=== PATIENT | female | born 1965 | race Caucasian/White ===

== ENCOUNTER 2017-04-12 20:54 | Inpatient (IN) | payer MEDICAID ==
[~2017-04-12] VITALS: Ht 167.6 cm; Wt 92.5 kg
[~2017-04-12 20:54] MED LIST: CLIN150C15; IBUP-1955
--- NOTE | 2017-04-12 21:42 | NUR ---
Patient is in bed. Bed is in lowest position, wheels locked, side rails up x2. Visitor at bedside. Patient has current complaint of nausea but no active vomiting. VSS. Placed on logistics vice president with NSR noted. Will continue to monitor patient.
[2017-04-12] MEDS ORDERED: IV NORMAL SALINE 500 ML BAG IV ONE (21:45)
[2017-04-12] MEDS ORDERED: MORPHINE SULFATE 2 MG/1 ML DISP.SYRIN IV ONE (22:00)
[2017-04-12 22:04] LABS: BASOPHILS % (AUTO) 0.5 % (0.0-2.0); EOSINOPHILS # (AUTO) 0.1 K/uL (0.0-0.7); EOSINOPHILS % (AUTO) 1.3 % (0.0-7.0); HEMATOCRIT 48.9 % (31.2-41.9); HEMOGLOBIN 16.1 g/dL (10.9-14.3); LYMPHOCYTES % (AUTO) 13.5 % (20.5-51.5); MEAN CORPUSCULAR HEMOGLOBIN 27.7 uug (24.7-32.8); MEAN CORPUSCULAR HGB CONC 33 g/dL (32.3-35.6); MEAN CORPUSCULAR VOLUME 84.3 fL (75.5-95.3); MONOCYTES # (AUTO) 0.7 K/uL (2.0-10.0); MONOCYTES % (AUTO) 9.8 % (0.0-11.0); NEUTROPHILS # (AUTO) 5.6 K/uL (1.8-8.9); NEUTROPHILS % (AUTO) 74.9 % (38.5-71.5); PLATELET COUNT (AUTO) 137 K/uL (179-408); WHITE BLOOD COUNT (AUTO) 7.5 K/uL (3.8-11.8)
[2017-04-12 22:11] LABS: CREATININE 0.9 mg/dL (0.6-1.3); POTASSIUM 3.8 mmol/L (3.5-5.1)
[2017-04-12] MEDS ORDERED: ONDANSETRON 4 MG/2 ML VIAL IV ONE (22:15)
[2017-04-12 22:17] LABS: BILIRUBIN,DIRECT 1.2 mg/dL (0.0-0.2); BILIRUBIN,TOTAL 2.2 mg/dL (0.2-1.0); TOTAL PROTEIN, SERUM 7.9 g/dL (6.4-8.2)
[2017-04-12] MEDS ORDERED: MORPHINE SULFATE 4 MG/1 ML DISP.SYRIN ONE (22:18)
[2017-04-12] MEDS ORDERED: ONDANSETRON 4 MG/2 ML VIAL ONE (22:18)
[2017-04-12] MEDS ORDERED: FUROSEMIDE 20 MG/2 ML VIAL IV ONE (22:45)
--- NOTE | 2017-04-12 22:59 | NUR ---
Report given to Colleen BOTELLO
[2017-04-12] MEDS ORDERED: FUROSEMIDE 40 MG/4 ML VIAL ONE (23:01)
--- NOTE | 2017-04-12 23:20 | NUR ---
Patient is ready for inpatient admission. Patient will be admitted to Telemetry under Dr Estrella. Patient Dx is CHF. Report was given to Colleen BOTELLO. VSS. Patient denies recent inpatient admission or alf care. Does not qualify for MRSA at this time. belongings list complete.
--- NOTE | 2017-04-12 23:28 | NUR ---
PT BEING TRANSPORTED BY RN TO 2ND FLOOR/TELEMETRY BED 220. SPOUSE FOLLOWING. ALL BELONGINGS TAKEN HOME BY . EYE GLASSES REMAIN IN PATIENT POSESSION FOR ADMIT.
[2017-04-12] MEDS ORDERED: MAGNESIUM HYDROXIDE 30 ML LIQUID UDC PO PRN (23:45)
[2017-04-12] MEDS ORDERED: ALBUTEROL SULFATE 2.5 MG/3 ML NEBU NEB PRN (23:45)
[2017-04-12] MEDS ORDERED: ACETAMINOPHEN 325 MG TABLET PO PRN (23:45)
[2017-04-12 23:51] VITALS: BP 128/77
--- NOTE | 2017-04-13 00:15 | NUR ---
Received to room 220 via gurney & O2. Boy Friend of many decades with patient. Glasses & upper dentures at bedside.
[2017-04-13] MEDS ORDERED: ENOXAPARIN SODIUM 40 MG/0.4 ML DISP.SYRIN SQ ONE (00:30)
[2017-04-13] MEDS: MORPHINE SULFATE 4 MG/1 ML DISP.SYRIN IV PRN ×2 (00:58→18:11)
[2017-04-13] MEDS ORDERED: ATOR40TA PO (02:42)
[2017-04-13] MEDS ORDERED: ASPI81TA31 PO (02:42)
[2017-04-13] MEDS ORDERED: DOCU100C36 PO (02:42)
[2017-04-13] MEDS ORDERED: GABA-534 PO (02:42)
[2017-04-13] MEDS ORDERED: SILD50TA PO (02:42)
[2017-04-13] MEDS ORDERED: MUPI22OI2 TP (02:42)
[2017-04-13] MEDS ORDERED: METO25TA6 PO (02:42)
[2017-04-13] MEDS ORDERED: [UNRECOGNIZED DRUG - CODE] TP (02:42)
[2017-04-13] MEDS ORDERED: DIPH50CA37 PO (02:42)
[2017-04-13] MEDS ORDERED: TRAM50TA2 PO (02:42)
[2017-04-13] MEDS ORDERED: FURO-151 PO (02:42)
[2017-04-13] MEDS ORDERED: LOPE2CAP PO (02:42)
[2017-04-13] MEDS ORDERED: POTA10TA15 PO (02:42)
[2017-04-13] MEDS ORDERED: PANT40TA4 PO (02:42)
[2017-04-13] MEDS ORDERED: DILT-32 PO (02:42)
[2017-04-13 04:00] VITALS: BP 118/78
--- NOTE | 2017-04-13 04:45 | NUR ---
Patient had 7 beat run VT via telemetry. notified; noted new orders.
[2017-04-13] MEDS: ONDANSETRON 4 MG/2 ML VIAL IV PRN ×2 (05:52→18:11)
[2017-04-13] MEDS: PANTOPRAZOLE SODIUM 40 MG TABLET.DR PO SCH ×2 (06:58→07:03)
[2017-04-13 07:28] LABS: BILIRUBIN,TOTAL 2.2 mg/dL (0.2-1.0); MAGNESIUM 1.5 mg/dL (1.8-2.4); PHOSPHOROUS 4.4 mg/dL (2.5-4.9); POTASSIUM 3.9 mmol/L (3.5-5.1); TOTAL PROTEIN, SERUM 7.4 g/dL (6.4-8.2)
[2017-04-13 07:55] LABS: BASOPHILS # (AUTO) 0.1 K/uL (0.0-8.0); BASOPHILS % (AUTO) 0.8 % (0.0-2.0); EOSINOPHILS # (AUTO) 0.1 K/uL (0.0-0.7); EOSINOPHILS % (AUTO) 1.2 % (0.0-7.0); HEMATOCRIT 47.4 % (31.2-41.9); HEMOGLOBIN 15.5 g/dL (10.9-14.3); LYMPHOCYTES # (AUTO) 1.5 K/uL (20.0-40.0); LYMPHOCYTES % (AUTO) 22.7 % (20.5-51.5); MEAN CORPUSCULAR HEMOGLOBIN 27.6 uug (24.7-32.8); MEAN CORPUSCULAR HGB CONC 33 g/dL (32.3-35.6); MEAN CORPUSCULAR VOLUME 84.5 fL (75.5-95.3); MONOCYTES # (AUTO) 0.8 K/uL (2.0-10.0); MONOCYTES % (AUTO) 12.5 % (0.0-11.0); NEUTROPHILS % (AUTO) 62.8 % (38.5-71.5); PLATELET COUNT (AUTO) 142 K/uL (179-408); RED BLOOD CELL COUNT(AUTO) 5.61 MIL/uL (3.63-4.92); WHITE BLOOD COUNT (AUTO) 6.4 K/uL (3.8-11.8)
--- NOTE | 2017-04-13 08:00 | NUR ---
Received patient resting in bed, in no distress, no SOB, no c/o of chest pain. Patient's skin on nose & bilateral legs noted to be cyanotic, present on admission, MD aware.
[2017-04-13] MEDS: FUROSEMIDE 20 MG/2 ML VIAL IV SCH (08:40)
[2017-04-13 08:41] LABS: THYROID STIMULATING HORMONE 3.61 mIU/mL (0.358-3.740)
[2017-04-13 11:08] VITALS: BP 128/74
--- NOTE | 2017-04-13 12:30 | NUR ---
notified regarding medication reconciliation.
[2017-04-13] MEDS: MAGNESIUM SULFATE/D5W 100 ML IV SCH ×2 (14:50→16:08)
[2017-04-13 15:50] VITALS: BP 130/82
--- NOTE | 2017-04-13 18:00 | NUR ---
Patient is alert, in no distress, no SOB, no c/o of chest pain. Patient noted to have extremities and nose cyanotic in color, MD aware. Patient c/o of not feeling good, pain management as ordered. Non pharmacological interventions provided for relief, patient is appreciative. Friend at bedside. All needs met, Safety measures in place, will continue to monitor.
--- NOTE | 2017-04-13 20:00 | NUR ---
RECEIVED PATIENT AWAKE IN BED, SHE'S AOX3 AND VERY LETHARGIC, SHE COMPLAINS OF BEING TOO TIRED. NO RESP DISTRESS OR PAIN AT PRESENT. FEET AND NOSE CYANOTIC, PATIENT SEEN BY MD EARLIER, MD AWARE. ENCOURAGED PATIENT TO KEEP HER O2 ON FOR COMFORT. SAFETY MEASURES IN PLACE
[2017-04-13 20:29] VITALS: BP 126/88
[2017-04-13] MEDS ORDERED: DOCUSATE SODIUM 250 MG CAPSULE PO SCH (21:00)
[2017-04-13] MEDS ORDERED: DOCUSATE SODIUM 100 MG CAPSULE PO SCH (21:20)
[2017-04-13] MEDS: MELATONIN 3 MG TABLET PO SCH (22:07)
[2017-04-13] MEDS: HYDROCODONE/APAP 10-325 MG TABLET PO PRN (22:08)
[2017-04-13] MEDS: ENOXAPARIN SODIUM 40 MG/0.4 ML DISP.SYRIN SQ SCH (22:09)
[2017-04-13] MEDS ORDERED: BISACODYL 10 MG SUPP.RECT RC ONE (23:30)
[2017-04-13] MEDS ORDERED: BISACODYL 10 MG SUPP.RECT RC PRN (23:30)
[2017-04-14 00:56] VITALS: BP 119/83
[2017-04-14 05:22] LABS: *BLOOD, URINE 2+ (NEGATIVE); *CLARITY,URINE SLIGHTLY CLOUDY (CLEAR); *COLOR,URINE YELLOW (YELLOW); *KETONES,URINE TRACE (NEGATIVE); *PROTEIN,URINE 1+ (NEGATIVE); LEUKOCYTE ESTERASE ,URINE NEGATIVE (NEGATIVE); NITRITE, URINE NEGATIVE (NEGATIVE); PH,URINE 5.5 (5.0-8.0); UGLUCOSE NEGATIVE (NEGATIVE)
[2017-04-14 05:31] LABS: *BILIRUBIN,URIN 2+ (NEGATIVE)
[2017-04-14 05:38] LABS: BACTERIA,URINE NONE SEEN /HPF (NONE SEEN); RBC,URINE 20-50 /HPF (0-3); SQUAMOUS EPITHELIAL CELL,UR MANY /HPF (NONE SEEN); YEAST,URINE MODERATE /HPF (NONE SEEN)
[2017-04-14] MEDS: PANTOPRAZOLE SODIUM 40 MG TABLET.DR PO SCH (06:33)
[2017-04-14 06:56] VITALS: BP 119/85
[2017-04-14 07:03] LABS: BASOPHILS # (AUTO) 0.1 K/uL (0.0-8.0); BASOPHILS % (AUTO) 0.8 % (0.0-2.0); EOSINOPHILS # (AUTO) 0.1 K/uL (0.0-0.7); EOSINOPHILS % (AUTO) 1.7 % (0.0-7.0); HEMATOCRIT 46.5 % (31.2-41.9); HEMOGLOBIN 15.3 g/dL (10.9-14.3); LYMPHOCYTES # (AUTO) 1.7 K/uL (20.0-40.0); LYMPHOCYTES % (AUTO) 27.3 % (20.5-51.5); MEAN CORPUSCULAR HEMOGLOBIN 27.7 uug (24.7-32.8); MEAN CORPUSCULAR HGB CONC 33 g/dL (32.3-35.6); MEAN CORPUSCULAR VOLUME 84.4 fL (75.5-95.3); MONOCYTES # (AUTO) 1.1 K/uL (2.0-10.0); MONOCYTES % (AUTO) 17.3 % (0.0-11.0); NEUTROPHILS # (AUTO) 3.2 K/uL (1.8-8.9); NEUTROPHILS % (AUTO) 52.9 % (38.5-71.5); PLATELET COUNT (AUTO) 154 K/uL (179-408); RED BLOOD CELL COUNT(AUTO) 5.51 MIL/uL (3.63-4.92); WHITE BLOOD COUNT (AUTO) 6.1 K/uL (3.8-11.8)
[2017-04-14 07:09] LABS: BILIRUBIN,TOTAL 2.1 mg/dL (0.2-1.0); CREATININE 1.2 mg/dL (0.6-1.3); MAGNESIUM 1.9 mg/dL (1.8-2.4); PHOSPHOROUS 5.4 mg/dL (2.5-4.9); TOTAL PROTEIN, SERUM 7.4 g/dL (6.4-8.2)
[2017-04-14] MEDS: HYDROCODONE/APAP 10-325 MG TABLET PO PRN ×2 (08:25→15:30)
[2017-04-14] MEDS: METOPROLOL TARTRATE 25 MG TABLET PO SCH ×2 (08:26→17:00)
[2017-04-14] MEDS: FUROSEMIDE 20 MG/2 ML VIAL IV SCH (08:26)
[2017-04-14] MEDS: GABAPENTIN 300 MG CAPSULE PO SCH ×3 (08:26→17:45)
[2017-04-14] MEDS: ASPIRIN 81 MG TAB.CHEW PO SCH (08:26)
[2017-04-14] MEDS: ONDANSETRON 4 MG/2 ML VIAL IV PRN (08:36)
[2017-04-14 09:58] LABS: EOSINOPHILS % (MANUAL) 1 % (0-8); LYMPHOCYTES % (MANUAL) 26 % (20-40); MONOCYTES % (MANUAL) 9 % (2-10); NEUTROPHILS % (MANUAL) 64 % (42-75)
[2017-04-14 11:02] VITALS: BP 107/77
--- NOTE | 2017-04-14 11:15 | NUR ---
Patient signed consent for US guided paracentesis as ordered. Consent placed in patient's chart.
[2017-04-14] MEDS ORDERED: SILD20TA2 PO (11:54)
[2017-04-14] MEDS: SILDENAFIL 20 MG TABLET PO SCH ×2 (13:01→21:06)
--- NOTE | 2017-04-14 14:35 | NUR ---
WOUND CARE CONSULT: PT PRESENTS WITH RT LOWER LEG WOUND WITH EDEMA, PRESENT ON ADMISSION. RECOMMENDATIONS MADE FOR WOUND CARE. DISCUSSED WITH NURSING STAFF. PT HAS LOWER LEG DISCOLORATION AND DRY SKIN. PT IS INDEPENDENT WITH BED MOBILITY AND CONTINENT AT THIS TIME. WILL SEE PRN. JOY IN AGREEMENT WITH PLAN OF CARE. Addendum: 04/14/17 at 1436 by RAUL RATLIFF RN Amended: Links added.
--- NOTE | 2017-04-14 14:41 | NUR ---
Wound treatment done on right leg as ordered. Instructed patient to elevate bilateral legs but patient refused, cannot tolerate due to difficulty breathing. Will continue to monitor.
[2017-04-14 15:05] VITALS: BP 108/78
[2017-04-14] MEDS: FLUCONAZOLE 200 MG/NS 100ML IV 100 MG in PREMIXED 1 EACH IV SCH (15:27)
[2017-04-14] MEDS: MORPHINE SULFATE 4 MG/1 ML DISP.SYRIN IV PRN ×2 (17:49→23:56)
--- NOTE | 2017-04-14 18:00 | NUR ---
Patient alert, in no distress. Patient s/p paracentesis, dressing on lower right abdomen incision site intact/dry, no bleeding noted. Pain management as ordered. Patient s/p wound debridement on right lower leg, no bleeding noted. VS stable, afebrile. Instructed patient to keep oxygen on at all times and bilateral feet elevated. Patient verbalized understanding. Family at bedside. Will continue to monitor.
--- NOTE | 2017-04-14 20:00 | NUR ---
RECEIVED PATIENT AWAKE IN BED. A/O X4. NO C/O PAIN OR DISCOMFORT AT THIS TIME. VSS. H/L INTACT AND PATENT. ON TELE SR. BANDAGE NOTED TO RIGHT LOWER QUADRANT, DRY AND INTACT. DRESSING NOTED TO RIGHT LOWER LEG, C/D/I. ON O2 3L NC. NO RESP. DISTRESS NOTED. NO SOB. CALL LIGHT IN REACH. BED ALARM ON. CALL LIGHT IN REACH. ALL NEEDS ATTENDED. WILL CONTINUE TO MONITOR AND ASSESS.
[2017-04-14 20:20] VITALS: BP 103/80
[2017-04-14] MEDS: MELATONIN 3 MG TABLET PO SCH (21:04)
[2017-04-14] MEDS: ENOXAPARIN SODIUM 40 MG/0.4 ML DISP.SYRIN SQ SCH (21:04)
[2017-04-15 00:40] VITALS: BP 109/83
[2017-04-15 04:36] VITALS: BP 115/81
[2017-04-15] MEDS: SILDENAFIL 20 MG TABLET PO SCH ×2 (05:56→13:06)
[2017-04-15] MEDS: MORPHINE SULFATE 4 MG/1 ML DISP.SYRIN IV PRN (06:06)
[2017-04-15] MEDS: PANTOPRAZOLE SODIUM 40 MG TABLET.DR PO SCH (06:30)
--- NOTE | 2017-04-15 06:52 | NUR ---
PATIENT ASLEEP IN BED. WAS JUST MEDICATED WITH MORPHINE 2MG IV PRN PER [facility]. NO RESP. DISTRESS NOTED. ON O2 2L NC. ON TELE SR. VS WNL. SLEPT WELL THROUGHOUT THE NIGHT. BED ALARM ON. CALL LIGHT IN REACH. ALL NEEDS ATTENDED. WILL CONTINUE TO MONITOR AND ASSESS.
--- NOTE | 2017-04-15 08:00 | NUR ---
resting quiet no acute distress no n/v or sob or pain at this time ON FALL PRECAUTION CALL LIGHT IN REACH AND REMIND TO USE WHEN NEEDED
[2017-04-15 08:17] LABS: BASOPHILS % (AUTO) 0.8 % (0.0-2.0); EOSINOPHILS # (AUTO) 0.1 K/uL (0.0-0.7); EOSINOPHILS % (AUTO) 1.8 % (0.0-7.0); HEMATOCRIT 44.2 % (31.2-41.9); HEMOGLOBIN 14.3 g/dL (10.9-14.3); LYMPHOCYTES # (AUTO) 0.9 K/uL (20.0-40.0); LYMPHOCYTES % (AUTO) 15.9 % (20.5-51.5); MEAN CORPUSCULAR HEMOGLOBIN 27.5 uug (24.7-32.8); MEAN CORPUSCULAR HGB CONC 32 g/dL (32.3-35.6); MONOCYTES # (AUTO) 0.9 K/uL (2.0-10.0); MONOCYTES % (AUTO) 16.4 % (0.0-11.0); NEUTROPHILS # (AUTO) 3.6 K/uL (1.8-8.9); NEUTROPHILS % (AUTO) 65.1 % (38.5-71.5); PLATELET COUNT (AUTO) 139 K/uL (179-408); WHITE BLOOD COUNT (AUTO) 5.6 K/uL (3.8-11.8)
[2017-04-15 08:24] LABS: MAGNESIUM 1.7 mg/dL (1.8-2.4); PHOSPHOROUS 3.9 mg/dL (2.5-4.9); POTASSIUM 3.4 mmol/L (3.5-5.1)
[2017-04-15] MEDS: FUROSEMIDE 20 MG/2 ML VIAL IV SCH (09:08)
[2017-04-15] MEDS: ASPIRIN 81 MG TAB.CHEW PO SCH (09:13)
[2017-04-15] MEDS: GABAPENTIN 300 MG CAPSULE PO SCH ×3 (09:13→17:10)
[2017-04-15] MEDS: METOPROLOL TARTRATE 25 MG TABLET PO SCH ×2 (09:13→17:00)
[2017-04-15 09:23] LABS: BAND % (MANUAL) 2 % (0-10); EOSINOPHILS % (MANUAL) 1 % (0-8); LYMPHOCYTES % (MANUAL) 14 % (20-40); MONOCYTES % (MANUAL) 15 % (2-10); NEUTROPHILS % (MANUAL) 68 % (42-75)
--- NOTE | 2017-04-15 10:00 | NUR ---
WOUND CARE DSG CHANGE DONE AT THIS TIME PO FLD FREEDOM WELL OOB UP TO BRP WITH ASSIST DOING WELL REFUSED TO HAVE RT DRAW BLOOD FOR ABG WILL NOTIFY
[2017-04-15 11:42] VITALS: BP 99/57
[2017-04-15] MEDS ORDERED: POTASSIUM CHLORIDE 20 MEQ TAB.PRT.SR PO ONE (12:30)
[2017-04-15] MEDS ORDERED: MAGNESIUM OXIDE 400 MG TABLET PO ONE (12:30)
[2017-04-15] MEDS ORDERED: CEPH-570 PO (12:37)
--- NOTE | 2017-04-15 13:00 | NUR ---
D/C INSTRUCTION REGARDING F/U WITH OWN PMD CONTINUE HOME MEDICINE ORDER AND EDUCATION PK GIVEN ,VERBALIZES UNDERSTAND AND SIGNS D/C SHEET
[2017-04-15] MEDS: FLUCONAZOLE 200 MG/NS 100ML IV 100 MG in PREMIXED 1 EACH IV SCH (14:33)
--- NOTE | 2017-04-15 15:00 | NUR ---
FAMILY FRIEND WAS CALL X2 STATE WILL COME TO PICK HER UP THIS PM
[2017-04-15 15:40] VITALS: BP 96/63
--- NOTE | 2017-04-15 16:00 | NUR ---
DR JEAN WAS CALL REGARDING PATIENT UNABLE TO TAKE [employer]IOT[employer] PRECRIPTION PER PHAMACY AND NEED TO CHANGE TO MACROBID AND MESSAGE LEFT
[2017-04-15 17:00] VITALS: BP 90/52
--- NOTE | 2017-04-15 17:00 | NUR ---
LUANA JEAN CALL BACK AND REPORT OF PRECRIPTION SITUATION STATE PATIENT PHAMACY WILL CALL HIM FOR ANTIBIOTICS MACROBID AND PATIENT WAS INFORM
--- NOTE | 2017-04-15 18:00 | NUR ---
HEMODYNAMIC STATUS STABLE PAIN UNDER CONTROL NO ACUTE DISTRESS SAFETY MEASURE PROVIDED AND CALL LIGHT IN REACH
--- NOTE | 2017-04-15 19:35 | NUR ---
Patient is going home with boyfriend and belongings. Vital signs stable. No acute distress noted. DC IV access.
[2017-04-15] MEDS ORDERED: NITROFURANTOIN/NITROFURAN MAC 100 MG CAPSULE PO SCH (21:00)
== END 2017-04-15 19:55 | disposition home or self-care (01) | DRG 180 ==
LOC: ER 20:56 → TELE 23:28 → MED 04-15 15:10
PROVIDERS: ADMIT Internal Medicine; ATTEND Internal Medicine
PROC: 0HBKXZZ Excision of Right Lower Leg Skin, External Approach (ICD-10-PCS; principal; 2017-04-14)
PROC: 0W9G3ZX Drainage of Peritoneal Cavity, Percutaneous Approach, Diagnostic (ICD-10-PCS; principal; 2017-04-14)
DX: I27.29 Other secondary pulmonary hypertension (principal); J96.11 Chronic respiratory failure with hypoxia; R18.8 Other ascites; Z99.81 Dependence on supplemental oxygen; I50.812 Chronic right heart failure; L97.819 Non-pressure chronic ulcer of other part of right lower leg with unspecified severity; N39.0 Urinary tract infection, site not specified; F15.188 Other stimulant abuse with other stimulant-induced disorder; I50.814 Right heart failure due to left heart failure; Z88.0 Allergy status to penicillin; J44.9 Chronic obstructive pulmonary disease, unspecified; Z79.82 Long term (current) use of aspirin; Z79.899 Other long term (current) drug therapy; I87.2 Venous insufficiency (chronic) (peripheral); R60.0 Localized edema; B95.2 Enterococcus as the cause of diseases classified elsewhere; Z91.19 Patient's noncompliance with other medical treatment and regimen
CPT/HCPCS: 36415; 70030-TC; 71045; 82785; 83550; 83615; 83690; 83735; 84100; 84155; 84443; 84703; 85025; 85610; 86803; 87070; 87077; 87086; 87205; 93005; 93307; 94664; A4217; A4663; J1450; J1650; J1940; J2270; J2405; J3475; J7030; J7040

== ENCOUNTER 2017-05-11 21:01 | Inpatient (IN) | payer MEDICAID ==
[~2017-05-11] VITALS: Ht 167.6 cm; Wt 90.7 kg
[~2017-05-11 21:01] MED LIST changes: +ASPI81TA31 PO; +ATOR40TA PO; +CEPH-570 PO; -CLIN150C15; +DILT-32 PO; +DIPH50CA37 PO; +DOCU100C36 PO; +FURO-151 PO; +GABA-534 PO; -IBUP-1955; +LOPE2CAP PO; +METO25TA6 PO; +MUPI22OI2 TP; +PANT40TA4 PO; +POTA10TA15 PO; +SILD20TA2 PO; +TRAM50TA2 PO; +[UNRECOGNIZED DRUG - CODE] TP
--- NOTE | 2017-05-11 21:30 | NUR ---
PT PRESTENTS TO ER W/ MULTIPLE COMPLAINTS: SOB X2DAYS R/T HX OF PULMONART HTN; ABD PAIN AND DISTENTION/ASCITES, BILATERAL SWELLING OF LOWER EXTREMITIES, W/ WOUND ON RT LOWER EXTREMITY. PLACED ON MONITOR, PULSE OX, AND OXYGEN.
--- NOTE | 2017-05-11 21:40 | NUR ---
DR ESPERANZA TAVERAS MD AT BEDSIDE FOR MSE.
--- NOTE | 2017-05-11 21:58 | NUR ---
LAB AT BEDSIDE FOR BLOOD DRAW.
--- NOTE | 2017-05-11 22:05 | NUR ---
XRAY AT PT BEDSIDE.
[2017-05-11 22:08] LABS: BASOPHILS # (AUTO) 0.1 K/uL (0.0-8.0); BASOPHILS % (AUTO) 1.1 % (0.0-2.0); EOSINOPHILS # (AUTO) 0.1 K/uL (0.0-0.7); EOSINOPHILS % (AUTO) 1.5 % (0.0-7.0); HEMATOCRIT 47.4 % (31.2-41.9); HEMOGLOBIN 15.5 g/dL (10.9-14.3); LYMPHOCYTES # (AUTO) 1.9 K/uL (20.0-40.0); LYMPHOCYTES % (AUTO) 21.5 % (20.5-51.5); MEAN CORPUSCULAR HEMOGLOBIN 27.4 uug (24.7-32.8); MEAN CORPUSCULAR HGB CONC 33 g/dL (32.3-35.6); MONOCYTES # (AUTO) 0.8 K/uL (2.0-10.0); MONOCYTES % (AUTO) 8.6 % (0.0-11.0); NEUTROPHILS # (AUTO) 5.9 K/uL (1.8-8.9); NEUTROPHILS % (AUTO) 67.3 % (38.5-71.5); PLATELET COUNT (AUTO) 221 K/uL (179-408); RED BLOOD CELL COUNT(AUTO) 5.64 MIL/uL (3.63-4.92); WHITE BLOOD COUNT (AUTO) 8.8 K/uL (3.8-11.8)
[2017-05-11 22:16] LABS: POTASSIUM 3.2 mmol/L (3.5-5.1)
[2017-05-11 22:21] LABS: BILIRUBIN,TOTAL 1.7 mg/dL (0.2-1.0); TOTAL PROTEIN, SERUM 7.9 g/dL (6.4-8.2)
[2017-05-11] MEDS ORDERED: POTASSIUM BICARBONATE/CIT AC 25 MEQ TABLET.EFF PO ONE (23:00)
[2017-05-11] MEDS ORDERED: MORPHINE SULFATE 4 MG/1 ML DISP.SYRIN ONE (23:14)
[2017-05-11] MEDS ORDERED: POTASSIUM BICARBONATE/CIT AC 25 MEQ TABLET.EFF ONE (23:14)
[2017-05-11] MEDS ORDERED: ONDANSETRON 4 MG/2 ML VIAL ONE (23:14)
[2017-05-11] MEDS ORDERED: MORPHINE SULFATE 4 MG/1 ML DISP.SYRIN IV ONE (23:15)
[2017-05-11] MEDS ORDERED: ONDANSETRON 4 MG/2 ML VIAL IV ONE (23:15)
--- NOTE | 2017-05-11 23:32 | NUR ---
PT RESTING COMFORTABLY IN BED WATCHING TV. NO ACUTE SIGNS OF DISTRESS. SIGNIFICANT OTHER AT BEDSIDE.
--- NOTE | 2017-05-12 00:31 | NUR ---
REPORT GIVEN TO ROSMERY VAUGHAN.
--- NOTE | 2017-05-12 00:37 | NUR ---
DR MATA SPEAKING W/ STEVE REA.
[2017-05-12] MEDS ORDERED: ACETAMINOPHEN 325 MG TABLET PO PRN (00:45)
[2017-05-12] MEDS ORDERED: TEMAZEPAM 15 MG CAPSULE PO PRN (00:45)
[2017-05-12] MEDS ORDERED: HYDROCODONE/APAP 5-325MG TABLET PO PRN (00:45)
[2017-05-12] MEDS ORDERED: MORPHINE SULFATE 2 MG/1 ML DISP.SYRIN IV PRN (00:45)
[2017-05-12] MEDS ORDERED: MAGNESIUM HYDROXIDE 30 ML LIQUID UDC PO PRN (00:45)
--- NOTE | 2017-05-12 00:53 | NUR ---
PT VERBALIZES THAT SHE WANTS TO BE A FULL CODE.
[2017-05-12 01:00] VITALS: BP 122/87
--- NOTE | 2017-05-12 01:18 | NUR ---
Pt. admitted to TELE, under care of STEVE REA Belongs List completed
--- NOTE | 2017-05-12 01:30 | NUR ---
NEW ADMIT FROM ER, ADMITTED FOR ASCITES. PATIENT IS AAOX3, ABLE TO STATE HER NEEDS. SHE DENIES PAIN ON ASSESSMENT, EASILY SOB WITH EXERTION O2 ON AT 2LPM WITH HOB TO EASE BREATHING. SAFETY AND COMFORT MEASURES IN PLACE, CALL LIGHT LEFT WITHIN PATIENT'S REACH
[2017-05-12 04:00] VITALS: BP 122/67
[2017-05-12 06:32] LABS: MAGNESIUM 1.7 mg/dL (1.8-2.4); PHOSPHOROUS 4.7 mg/dL (2.5-4.9); POTASSIUM 3.8 mmol/L (3.5-5.1)
--- NOTE | 2017-05-12 06:56 | NUR ---
PATIENT SLEPT ON AND OFF THROUGH OUT THE SHIFT. PRN PAIN MEDS GIVEN X1. NO C/O PAIN OR RESP DISTRESS , NO C/O CHEST PAIN. SAFETY AND COMFORT MEASURES IN PLACE, PATIENT ASLEEP WITH NO SIGNIFICANT CHANGES IN STATUS. ALL NEEDS MET
--- NOTE | 2017-05-12 07:30 | NUR ---
Received patient resting in bed, in no distress, no SOB. Patient's upper/lower extremities, nose, lips with chronic dry/cyanotic skin color noted due to patient's medical condition, MD aware. Patient is on O2 2L/NC saturating at 91%. Safety measures in place. Will continue to monitor.
[2017-05-12 11:22] VITALS: BP 117/85
[2017-05-12] MEDS ORDERED: MORPHINE SULFATE 4 MG/1 ML DISP.SYRIN IV PRN (12:30)
[2017-05-12] MEDS: ONDANSETRON 4 MG/2 ML VIAL IV PRN (12:32)
[2017-05-12] MEDS ORDERED: MAGNESIUM OXIDE 400 MG TABLET PO ONE (12:45)
[2017-05-12] MEDS ORDERED: FUROSEMIDE 40 MG/4 ML VIAL IV ONE (13:15)
[2017-05-12 15:00] VITALS: BP 135/84
--- NOTE | 2017-05-12 18:30 | NUR ---
Patient s/p paracentesis procedure. Incision sites on bilateral lower abdomen with dressing, clean/dry/intact, minimal slightly red tinged drainaged noted. Patient kept on O2 2L/NC, saturating at 90%. Pain and nausea/vomiting management as ordered. Will endorse to oncoming shift RN.
--- NOTE | 2017-05-12 19:20 | NUR ---
RECEIVED PT AWAKE, ALERT, ORIENTEDX4. PT SHOWS NO SIGNS OF DISTRESS. PT IV INTACT AND PATENT. CALL LIGHT WITHIN REACH. BED ALARM ON AND IN LOW POSITION. WILL CONTINUE TO MONITOR.
[2017-05-12 20:02] VITALS: BP 127/91
[2017-05-13 00:38] VITALS: BP 124/86
[2017-05-13 04:00] VITALS: BP 121/76
[2017-05-13] MEDS: ONDANSETRON 4 MG/2 ML VIAL IV PRN ×2 (05:37→12:32)
--- NOTE | 2017-05-13 06:02 | NUR ---
PT SLEPT THROUGHOUT THE SHIFT. PT SHOWS NO SIGNS OF DISTRESS. PT IV INTACT AND PATENT. GAVE ZOFRAN BECAUSE PT FEEL NAUSEOUS. PT CALL LIGHT WITHIN REACH. BED ALARM ON AND IN LOW POSITION.WILL ENDORSE TO DAYSHIFT NURSE.
[2017-05-13 06:22] LABS: BASOPHILS # (AUTO) 0.1 K/uL (0.0-8.0); BASOPHILS % (AUTO) 1.2 % (0.0-2.0); EOSINOPHILS # (AUTO) 0.1 K/uL (0.0-0.7); EOSINOPHILS % (AUTO) 0.8 % (0.0-7.0); HEMATOCRIT 49.9 % (31.2-41.9); HEMOGLOBIN 15.9 g/dL (10.9-14.3); LYMPHOCYTES # (AUTO) 2.1 K/uL (20.0-40.0); LYMPHOCYTES % (AUTO) 27.1 % (20.5-51.5); MEAN CORPUSCULAR HEMOGLOBIN 27.1 uug (24.7-32.8); MEAN CORPUSCULAR HGB CONC 32 g/dL (32.3-35.6); MEAN CORPUSCULAR VOLUME 84.8 fL (75.5-95.3); MONOCYTES # (AUTO) 0.8 K/uL (2.0-10.0); MONOCYTES % (AUTO) 10.5 % (0.0-11.0); NEUTROPHILS # (AUTO) 4.7 K/uL (1.8-8.9); NEUTROPHILS % (AUTO) 60.4 % (38.5-71.5); PLATELET COUNT (AUTO) 220 K/uL (179-408); RED BLOOD CELL COUNT(AUTO) 5.88 MIL/uL (3.63-4.92); WHITE BLOOD COUNT (AUTO) 7.8 K/uL (3.8-11.8)
--- NOTE | 2017-05-13 06:38 | NUR ---
DR NAGY NOTIFIED PT HAD VTACH FOR 27 BEATS. NO ORDER GIVEN. PT ON SINUS RHYTHM AT THIS TIME.
[2017-05-13 06:39] LABS: CREATININE 1.2 mg/dL (0.6-1.3); MAGNESIUM 1.6 mg/dL (1.8-2.4)
--- NOTE | 2017-05-13 06:42 | NUR ---
0638H DR. NAGY NOTIFIED OF PT HAD VTACH. Jostin REA NOTIFIED ALSO FOR VTACH. RONA ORDERED EKG STAT. WILL ENDORSE TO DAYSHIFT NURSE.
[2017-05-13 08:00] VITALS: BP 110/81
[2017-05-13] MEDS ORDERED: FUROSEMIDE 40 MG/4 ML VIAL IV SCH (09:00)
[2017-05-13] MEDS ORDERED: MAGNESIUM SULFATE/D5W 100 ML IV SCH (10:00)
[2017-05-13 10:49] LABS: *BLOOD, URINE 1+ (NEGATIVE); *KETONES,URINE NEGATIVE (NEGATIVE); *PROTEIN,URINE 1+ (NEGATIVE); *UROBILINOGEN,URINE 0.2 E.U./dl (NORMAL); LEUKOCYTE ESTERASE ,URINE TRACE (NEGATIVE); NITRITE, URINE NEGATIVE (NEGATIVE); PH,URINE 5.5 (5.0-8.0); UGLUCOSE NEGATIVE (NEGATIVE)
[2017-05-13 11:00] LABS: *BILIRUBIN,URIN 1+ (NEGATIVE); *CLARITY,URINE HAZY (CLEAR)
[2017-05-13 11:01] LABS: *COLOR,URINE YELLOW (YELLOW)
[2017-05-13 11:03] LABS: BACTERIA,URINE FEW /HPF (NONE SEEN); SQUAMOUS EPITHELIAL CELL,UR FEW /HPF (NONE SEEN)
[2017-05-13 11:04] LABS: CALCIUM OXALATE CRYSTALS,UR FEW /HPF (NONE SEEN)
[2017-05-13] MEDS: MAGNESIUM SULFATE/D5W 100 ML IV SCH ×3 (11:10→12:23)
--- NOTE | 2017-05-13 11:11 | NUR ---
WOUND CARE CONSULT: PT PRESENTS WITH RT LOWER LEG ULCER, PRESENT ON ADMISSION WITH PURULENT DRAINAGE. RECOMMEND SURGICAL FOLLOWUP. RECOMMENDATIONS MADE FOR WOUND CARE AND SKIN PROTECTION. DISCUSSED WITH NURSING STAFF. PT IS INDEPENDENT WITH BED MOBILITY AND CONTINENT AT THIS TIME. CYANOSIS NOTED TO LOWER LEGS AND SLIGHT CYANOSIS TO NOSE NOTED. WILL SEE PRN. JOY IN AGREEMENT WITH PLAN OF CARE. Addendum: 05/13/17 at 1113 by RAUL RATLIFF RN Amended: Links added.
[2017-05-13] MEDS ORDERED: CADEXOMER IODINE 40 GM TUBE TOP SCH (11:15)
[2017-05-13] MEDS ORDERED: Z GUARD REMEDY PASTE 57 GM TUBE TOP PRN (11:15)
[2017-05-13] MEDS ORDERED: CADE40GE2 TOP (11:30)
[2017-05-13] MEDS ORDERED: LACT1CAP59 PO (11:30)
[2017-05-13] MEDS ORDERED: LEVO500T2 PO (11:30)
[2017-05-13] MEDS ORDERED: LEVOFLOXACIN 500 MG TABLET PO SCH (11:30)
[2017-05-13 11:40] VITALS: BP 113/81
--- NOTE | 2017-05-13 12:46 | NUR ---
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 pt. going home with Oxygen 3L nasal canula. Pt. AAOX4. vitals stable c/of mild pain to RLE with no need of pain medication as stated by patient. " I don't wanna take anything" . Patient able to verbalized understanding of dcd instructions and sign dcd. documents. RLE medicated and wrap with kerlix. Addendum: 05/13/17 at 1249 by JACE BETTENCOURT RN IV access discontinued once magnesium replacement finished.
--- NOTE | 2017-05-13 14:40 | NUR ---
At this time pt's boyfriend Delgado in the room. Patient wheel down by nursing staff to a a private car. No c/of pain vitals stable. Patient reminded to picket [employer] all of her belonging.
== END 2017-05-13 14:45 | disposition home health service (06) ==
LOC: ER 21:01 → TELE 05-12 00:52
PROVIDERS: ADMIT Nurse Practitioner Acute Care; ATTEND Internal Medicine
PROC: 0W9G3ZZ Drainage of Peritoneal Cavity, Percutaneous Approach (ICD-10-PCS; principal; 2017-05-12)
DX: K74.60 Unspecified cirrhosis of liver (principal); J96.20 Acute and chronic respiratory failure, unspecified whether with hypoxia or hypercapnia; I47.2 Ventricular tachycardia; R18.8 Other ascites; E87.1 Hypo-osmolality and hyponatremia; D68.4 Acquired coagulation factor deficiency; I27.20 Pulmonary hypertension, unspecified; L97.819 Non-pressure chronic ulcer of other part of right lower leg with unspecified severity; Z99.81 Dependence on supplemental oxygen; E04.1 Nontoxic single thyroid nodule; I89.0 Lymphedema, not elsewhere classified; I87.2 Venous insufficiency (chronic) (peripheral); E87.6 Hypokalemia; E83.42 Hypomagnesemia; N39.0 Urinary tract infection, site not specified; I25.10 Atherosclerotic heart disease of native coronary artery without angina pectoris; F15.188 Other stimulant abuse with other stimulant-induced disorder; I07.1 Rheumatic tricuspid insufficiency; J44.9 Chronic obstructive pulmonary disease, unspecified; Z79.82 Long term (current) use of aspirin; I73.9 Peripheral vascular disease, unspecified; I51.7 Cardiomegaly; I50.32 Chronic diastolic (congestive) heart failure; Z79.899 Other long term (current) drug therapy; Z88.0 Allergy status to penicillin
CPT/HCPCS: 36415; 70030-TC; 71045; 76700; 83735; 84100; 84443; 85025; 85730; 86850; 86900; 86901; 93005; A4663; J1940; J2270; J2405; J3475

== ENCOUNTER 2017-05-26 13:22 | Inpatient (IN) | payer MEDICAID ==
[~2017-05-26] VITALS: Ht 167.6 cm; Wt 87.5 kg
[~2017-05-26 13:22] MED LIST changes: +CADE40GE2 TOP; -CEPH-570 PO; +LACT1CAP59 PO; +LEVO500T2 PO; -PANT40TA4 PO
--- NOTE | 2017-05-26 13:25 | NUR ---
Patient is AOX4, refused to change to hospital gown, comfort & safety measures maintained
[2017-05-26 14:02] LABS: BASOPHILS # (AUTO) 0.1 K/uL (0.0-8.0); BASOPHILS % (AUTO) 0.8 % (0.0-2.0); EOSINOPHILS # (AUTO) 0.1 K/uL (0.0-0.7); EOSINOPHILS % (AUTO) 0.9 % (0.0-7.0); HEMATOCRIT 48.2 % (31.2-41.9); HEMOGLOBIN 15.6 g/dL (10.9-14.3); LYMPHOCYTES # (AUTO) 1.4 K/uL (20.0-40.0); LYMPHOCYTES % (AUTO) 17.6 % (20.5-51.5); MEAN CORPUSCULAR HEMOGLOBIN 26.6 uug (24.7-32.8); MEAN CORPUSCULAR HGB CONC 32 g/dL (32.3-35.6); MEAN CORPUSCULAR VOLUME 82.3 fL (75.5-95.3); MONOCYTES # (AUTO) 0.8 K/uL (2.0-10.0); MONOCYTES % (AUTO) 10.5 % (0.0-11.0); NEUTROPHILS # (AUTO) 5.7 K/uL (1.8-8.9); NEUTROPHILS % (AUTO) 70.2 % (38.5-71.5); PLATELET COUNT (AUTO) 179 K/uL (179-408); RED BLOOD CELL COUNT(AUTO) 5.86 MIL/uL (3.63-4.92); WHITE BLOOD COUNT (AUTO) 8.1 K/uL (3.8-11.8)
--- NOTE | 2017-05-26 14:04 | NUR ---
Patient ambulated to bathroom with steady gait, NAD.
[2017-05-26 14:10] LABS: CREATININE 1.3 mg/dL (0.6-1.3)
[2017-05-26 14:15] LABS: BILIRUBIN,DIRECT 1.7 mg/dL (0.0-0.2); BILIRUBIN,TOTAL 2.9 mg/dL (0.2-1.0); POTASSIUM 2.8 mmol/L (3.5-5.1); TOTAL PROTEIN, SERUM 7.5 g/dL (6.4-8.2)
[2017-05-26] MEDS ORDERED: POTASSIUM CHLORIDE 20 MEQ TAB.PRT.SR PO ONE ×3 (14:30→22:15)
--- NOTE | 2017-05-26 14:30 | NUR ---
Call placed to [facility], Dr. Estrella has been paged
[2017-05-26] MEDS ORDERED: POTASSIUM CHLORIDE 20 MEQ TAB.PRT.SR ONE (14:39)
--- NOTE | 2017-05-26 14:55 | NUR ---
Patient is resting comfortably in bed while watching bedside TV, NAD
[2017-05-26 15:33] VITALS: BP 101/75
--- NOTE | 2017-05-26 16:00 | NUR ---
Received pt in bed. No apparent s/s of immediate distress, noted pt on O2 via NC. Pt is alert and oriented times 4. Admission process will be started. aware of her arrival
[2017-05-26] MEDS ORDERED: MORPHINE SULFATE 2 MG/1 ML DISP.SYRIN IM PRN (18:45)
[2017-05-26] MEDS ORDERED: MORPHINE SULFATE 4 MG/1 ML DISP.SYRIN IV PRN (19:00)
--- NOTE | 2017-05-26 19:00 | NUR ---
Pt was admitted to [facility], body assessment pictures taken. Pt is resting. O2 via NC on 2L
[2017-05-26 20:00] VITALS: BP 95/68
--- NOTE | 2017-05-26 20:00 | NUR ---
RECEIVED PATIENT AWAKE IN BED. A/O X3. NO C/O PAIN AT THIS TIME. ON O2 2L NC SATING WELL. DENIES SOB. NO RESP. DISTRESS NOTED. NEW IV HEPLOCK STARTED TO RIGHT WRIST #22 GAUGE. BED ALARM ON. CALL LIGHT IN REACH. ALL NEEDS ATTENDED. WILL CONTINUE TO MONITOR AND ASSESS.
[2017-05-26] MEDS ORDERED: HYDROCODONE/APAP 10-325 MG TABLET PO PRN (20:15)
[2017-05-26] MEDS ORDERED: MAGNESIUM HYDROXIDE 30 ML LIQUID UDC PO PRN (20:45)
[2017-05-26] MEDS ORDERED: ONDANSETRON 4 MG/2 ML VIAL IV PRN (20:45)
--- NOTE | 2017-05-26 20:45 | NUR ---
INFORMED DR. ANTONIO THAT PATIENT IS CRYING IN BED, C/O LEG CRAMPS. RECEIVED ORDER FOR PATIENT TO HAVE STAT BMP DRAWN. WILL CONTINUE TO MONITOR.
[2017-05-26 21:52] LABS: CREATININE 1.2 mg/dL (0.6-1.3); POTASSIUM 3.3 mmol/L (3.5-5.1)
--- NOTE | 2017-05-26 21:55 | NUR ---
DR. ANTONIO NOTIFIED OF BMP RESULT, RECEIVED NEW ORDER FOR PATIENT TO TAKE POTASSIUM 40MEQ X1 NOW. ALL NEEDS ATTENDED.
--- NOTE | 2017-05-26 22:40 | NUR ---
PATIENT GIVEN POTASSIUM 40MEQ ORDERED PER MD. ALL NEEDS ATTENDED.
[2017-05-26] MEDS ORDERED: PHYTONADIONE 10 MG/1 ML AMPUL SQ SCH (23:00)
--- NOTE | 2017-05-26 23:00 | NUR ---
REPORT GIVEN TO RN.
[2017-05-27] MEDS ORDERED: ALBUTEROL SULFATE 2.5 MG/3 ML NEBU NEB PRN (02:15)
[2017-05-27] MEDS: HYDROCODONE/APAP 5-325MG TABLET PO PRN ×3 (05:21→18:27)
[2017-05-27 05:34] VITALS: BP 110/75
[2017-05-27] MEDS ORDERED: PANTOPRAZOLE SODIUM 40 MG TABLET.DR PO SCH (07:00)
[2017-05-27 07:29] LABS: BILIRUBIN,TOTAL 2.2 mg/dL (0.2-1.0); CREATININE 1.3 mg/dL (0.6-1.3); MAGNESIUM 1.8 mg/dL (1.8-2.4); PHOSPHOROUS 3.6 mg/dL (2.5-4.9); POTASSIUM 3.8 mmol/L (3.5-5.1); TOTAL PROTEIN, SERUM 6.8 g/dL (6.4-8.2)
--- NOTE | 2017-05-27 07:30 | NUR ---
Awake, alert, oriented x 3. O2 at 2L/NC. Abdomen distended. With BM this morning. Discussed plan of care
[2017-05-27 07:37] LABS: BASOPHILS # (AUTO) 0.1 K/uL (0.0-8.0); BASOPHILS % (AUTO) 0.7 % (0.0-2.0); EOSINOPHILS # (AUTO) 0.1 K/uL (0.0-0.7); EOSINOPHILS % (AUTO) 1.5 % (0.0-7.0); HEMATOCRIT 46.4 % (31.2-41.9); LYMPHOCYTES # (AUTO) 1.3 K/uL (20.0-40.0); LYMPHOCYTES % (AUTO) 17.2 % (20.5-51.5); MEAN CORPUSCULAR HEMOGLOBIN 26.4 uug (24.7-32.8); MEAN CORPUSCULAR HGB CONC 32 g/dL (32.3-35.6); MEAN CORPUSCULAR VOLUME 81.6 fL (75.5-95.3); MONOCYTES % (AUTO) 12.8 % (0.0-11.0); NEUTROPHILS # (AUTO) 5.3 K/uL (1.8-8.9); NEUTROPHILS % (AUTO) 67.8 % (38.5-71.5); PLATELET COUNT (AUTO) 179 K/uL (179-408); RED BLOOD CELL COUNT(AUTO) 5.69 MIL/uL (3.63-4.92); WHITE BLOOD COUNT (AUTO) 7.8 K/uL (3.8-11.8)
[2017-05-27 08:13] LABS: THYROID STIMULATING HORMONE 6.657 mIU/mL (0.358-3.740)
[2017-05-27] MEDS ORDERED: METOPROLOL TARTRATE 25 MG TABLET PO SCH (09:00)
[2017-05-27] MEDS ORDERED: POTASSIUM CHLORIDE 20 MEQ TAB.PRT.SR PO SCH (09:00)
[2017-05-27] MEDS ORDERED: FUROSEMIDE 40 MG TABLET PO SCH (09:00)
[2017-05-27] MEDS ORDERED: CADEXOMER IODINE 40 GM TUBE TOP SCH (09:00)
[2017-05-27] MEDS: SILDENAFIL 20 MG TABLET PO SCH ×3 (09:12→17:16)
[2017-05-27] MEDS: GABAPENTIN 300 MG CAPSULE PO SCH ×3 (09:12→17:16)
[2017-05-27] MEDS ORDERED: GABA-534 PO (11:51)
[2017-05-27] MEDS ORDERED: HYDR-3326 PO (11:51)
[2017-05-27] MEDS ORDERED: PHYT10AM SQ (11:51)
[2017-05-27] MEDS ORDERED: MAGN400O6 PO (11:51)
[2017-05-27] MEDS ORDERED: SILD20TA PO (11:51)
[2017-05-27] MEDS ORDERED: ONDA4VIA30 IV (11:51)
[2017-05-27] MEDS ORDERED: PANT40TA2 PO (11:51)
[2017-05-27] MEDS ORDERED: METO25TA6 PO (11:51)
[2017-05-27] MEDS ORDERED: POTA20TA10 PO (11:51)
[2017-05-27] MEDS ORDERED: Morphine Sulfate Inj IV (11:51)
[2017-05-27] MEDS ORDERED: CADE40GE2 TOP (11:51)
[2017-05-27] MEDS ORDERED: ALBU2.5V7 NEB (11:51)
[2017-05-27] MEDS ORDERED: FURO40TA5 PO (11:51)
[2017-05-27 12:12] VITALS: BP 98/64
--- NOTE | 2017-05-27 12:55 | NUR ---
WOUND CARE CONSULT: PT PRESENTS WITH RT LOWER LEG WOUND, PRESENT ON ADMISSION. PT REFUSED FULL BODY ASSESSMENT OF BACK AND BUTTOCKS. LOWER LEGS AND FEET NOTED TO HAVE PURPLISH COLOR. WOUND CARE RECOMMENDATIONS DISCUSSED WITH NURSING STAFF. WILL SEE PRN. JOY IN AGREEMENT WITH PLAN OF CARE. Addendum: 05/27/17 at 1256 by RAUL RATLIFF RN Amended: Links added.
--- NOTE | 2017-05-27 15:00 | NUR ---
Transfer to [facility] refused by patient. Paracentesis stat ordered, consent signed by patient. Paracentesis done at bedside with 2700 output
[2017-05-27 16:09] VITALS: BP 98/63
--- NOTE | 2017-05-27 18:46 | NUR ---
With discharge order to home. Saline lock removed. DC instruction given verbalized understanding.
--- NOTE | 2017-05-27 19:20 | NUR ---
Received pt in her room with her significant other Delgado. In no acute distress. Denies any pain or SOB. Discharge paper work at bedside and discuss medication to both pt and Delgado and states understanding.
--- NOTE | 2017-05-27 19:36 | NUR ---
Pt discharged accompanied by Delgado Obando via wheelchair. BULB FARMWORKER wheeled pt out to their private car.
== END 2017-05-27 20:02 | disposition home or self-care (01) ==
LOC: ER 13:22 → MED 15:20
PROVIDERS: ADMIT Internal Medicine; ATTEND Internal Medicine
PROC: 0W9G3ZZ Drainage of Peritoneal Cavity, Percutaneous Approach (ICD-10-PCS; principal; 2017-05-27)
DX: K71.51 Toxic liver disease with chronic active hepatitis with ascites (principal); I50.33 Acute on chronic diastolic (congestive) heart failure; D68.4 Acquired coagulation factor deficiency; I42.8 Other cardiomyopathies; D68.59 Other primary thrombophilia; I27.20 Pulmonary hypertension, unspecified; J84.10 Pulmonary fibrosis, unspecified; I11.0 Hypertensive heart disease with heart failure; E87.6 Hypokalemia; G62.9 Polyneuropathy, unspecified; I07.1 Rheumatic tricuspid insufficiency; F17.210 Nicotine dependence, cigarettes, uncomplicated; F15.188 Other stimulant abuse with other stimulant-induced disorder; F19.10 Other psychoactive substance abuse, uncomplicated; F41.9 Anxiety disorder, unspecified; F32.9 Major depressive disorder, single episode, unspecified; J44.9 Chronic obstructive pulmonary disease, unspecified; K74.60 Unspecified cirrhosis of liver; I37.1 Nonrheumatic pulmonary valve insufficiency; G89.29 Other chronic pain; N20.0 Calculus of kidney; K59.00 Constipation, unspecified; B18.2 Chronic viral hepatitis C; I73.9 Peripheral vascular disease, unspecified
CPT/HCPCS: 36415; 70030-TC; 71045; 76700; 83550; 83690; 83735; 84100; 84443; 85025; 85610; 85730; A4663; J2270; J2405; J3430